=== PATIENT | female | born 1960 | race African-American/Black ===

== ENCOUNTER 2020-01-13 13:25 | Emergency (ER) | payer OTHER ==
[~2020-01-13] VITALS: Ht 157.5 cm; Wt 50.0 kg
[~2020-01-13 13:25] MED LIST: NOCURR
[2020-01-13] MEDS ORDERED: GABA-529 PO (13:45)
[2020-01-13] MEDS ORDERED: TRAM50TA4 PO (13:45)
[2020-01-13] MEDS ORDERED: QUET100T PO (13:45)
[2020-01-13] MEDS ORDERED: ACETAMINOPHEN/CODEINE 300-30 MG TABLET PO ONE (14:45)
[2020-01-13 17:46] VITALS: BP 157/98
[2020-01-13] MEDS ORDERED: KETOROLAC TROMETHAMINE 30 MG/ML VIAL IM ONE (18:00)
== END 2020-01-13 18:05 | disposition home or self-care (01) ==
LOC: EMS 13:25
DX: S09.90XA Unspecified injury of head, initial encounter (principal); S69.91XA Unspecified injury of right wrist, hand and finger(s), initial encounter; S49.91XA Unspecified injury of right shoulder and upper arm, initial encounter; F17.210 Nicotine dependence, cigarettes, uncomplicated; J45.909 Unspecified asthma, uncomplicated; I10 Essential (primary) hypertension; W01.0XXA Fall on same level from slipping, tripping and stumbling without subsequent striking against object, initial encounter; Y93.89 Activity, other specified; Y92.89 Other specified places as the place of occurrence of the external cause; Y99.8 Other external cause status
CPT/HCPCS: 29105; 29125; 70450; 72125; 73030; 73110; 73130; 96372; 99285; 99406; J1885

== ENCOUNTER 2020-02-05 01:06 | Emergency (ER) | payer OTHER ==
[~2020-02-05] VITALS: Ht 165.1 cm; Wt 54.5 kg
[~2020-02-05 01:06] MED LIST changes: +GABA-529 PO; -NOCURR; +QUET100T PO; +TRAM50TA4 PO
[2020-02-05] MEDS ORDERED: LIDOCAINE 5% TRANSDERMAL PATCH TD ONE (01:45)
[2020-02-05] MEDS ORDERED: ACETAMINOPHEN 500 MG TABLET PO ONE (01:45)
[2020-02-05 02:57] VITALS: BP 132/88
== END 2020-02-05 02:57 | disposition home or self-care (01) ==
LOC: EMS 01:06
DX: S20.211A Contusion of right front wall of thorax, initial encounter (principal); I10 Essential (primary) hypertension; J45.909 Unspecified asthma, uncomplicated; F17.210 Nicotine dependence, cigarettes, uncomplicated; W01.0XXA Fall on same level from slipping, tripping and stumbling without subsequent striking against object, initial encounter; Y93.89 Activity, other specified; Y92.89 Other specified places as the place of occurrence of the external cause; Y99.8 Other external cause status
CPT/HCPCS: 71250

== ENCOUNTER 2025-04-13 21:23 | Emergency (ER) | payer OTHER ==
[~2025-04-13] VITALS: Ht 134.6 cm; Wt 54.5 kg
[2025-04-13 23:18] VITALS: BP 145/89; PULSE 103; RESP 18; TEMP 98.1; O2SAT 100
[2025-04-13] MEDS: ACETAMINOPHEN/CODEINE 300-30 MG TABLET PO ONE (23:53)
[2025-04-13] MEDS: methocarbamoL 500 MG TABLET PO ONE (23:53)
[2025-04-13] MEDS: KETOROLAC TROMETHAMINE 60 MG/2 ML VIAL IM ONE (23:53)
[2025-04-14] MEDS ORDERED: IBUP-1554 PO (00:47)
[2025-04-14] MEDS ORDERED: ACET-2080 PO (00:47)
[2025-04-14] MEDS ORDERED: METH-659 PO (00:47)
== END 2025-04-14 01:20 | disposition home or self-care (01) ==
LOC: EMS 21:23
DX: G89.29 Other chronic pain (principal); M54.50 Low back pain, unspecified; M54.6 Pain in thoracic spine; J45.901 Unspecified asthma with (acute) exacerbation; I10 Essential (primary) hypertension; F17.210 Nicotine dependence, cigarettes, uncomplicated; Z79.899 Other long term (current) drug therapy
CPT/HCPCS: 99283; 96372; J1885

== ENCOUNTER → 2025-05-15 | Emergency (ER) | payer OTHER ==
[~2025-05-15] VITALS: Ht 160 cm; Wt 50.0 kg
[~2025-05-15] MED LIST changes: +ACET-2080 PO; -GABA-529 PO; +IBUP-1554 PO; +METH-659 PO; +METH-812 PO; -QUET100T PO; -TRAM50TA4 PO
[2025-05-15 01:24] VITALS: TEMP 99.1
[2025-05-15] MEDS: IBUPROFEN 400 MG TABLET PO ONE (03:43)
[2025-05-15] MEDS: ACETAMINOPHEN 500 MG TABLET PO ONE (03:43)
[2025-05-15 05:23] VITALS: BP 142/77; PULSE 89; RESP 18; O2SAT 99
== END | disposition home or self-care (01) ==
LOC: EMS 01:19
DX: M25.511 Pain in right shoulder (principal); I10 Essential (primary) hypertension; J45.909 Unspecified asthma, uncomplicated; F17.210 Nicotine dependence, cigarettes, uncomplicated
CPT/HCPCS: 99284; Z7502; Z7610

== ENCOUNTER 2025-06-30 17:41 | Emergency (ER) | payer OTHER ==
[~2025-06-30] VITALS: Ht 154.9 cm; Wt 48.2 kg
[2025-06-30 18:04] VITALS: TEMP 98.8
[2025-06-30] MEDS ORDERED: ACET-2080 PO (19:35)
[2025-06-30 19:47] VITALS: BP 123/57; PULSE 90; RESP 18; O2SAT 99
== END 2025-06-30 19:57 | disposition home or self-care (01) ==
LOC: EMS 17:47
DX: M25.511 Pain in right shoulder (principal); I10 Essential (primary) hypertension; J45.909 Unspecified asthma, uncomplicated; F17.210 Nicotine dependence, cigarettes, uncomplicated
CPT/HCPCS: 99283; Z7502